=== PATIENT | female | born 1970 | race African-American/Black ===

== ENCOUNTER 2021-06-24 16:21 | Outpatient (REF) | payer MEDICAID, SELFPAY ==
[2021-06-24 16:57] LABS: MANUAL DIFF FLAG NO
[2021-06-24 16:58] LABS: Basophils Percent Auto 0.4 % (0-2); Eosinophils Absolute Auto 0.1 X10*3/uL (0.0-0.4); Eosinophils Percent Auto 0.9 % (0-4); Hematocrit 35.1 % (37-47); Hemoglobin 12.3 g/dl (12.0-16.0); Imm Gran Abs Auto 0.02 X10*3/uL (0.00-0.03); Imm Gran Pct Auto 0.3 % (0.0-0.4); Lymphocytes Percent Auto 39.6 % (20-40); Mean Corpuscular Hemoglobin 29.9 pg (27.0-33.0); Mean Corpuscular Volume 85.4 fL (80-98); Mean Platelet Volume 8.6 fL (9.4-12.3); Monocytes Absolute Auto 0.5 X10*3/uL (0.1-1.2); Monocytes Percent Auto 6.7 % (2-11); Neutrophils Absolute Auto 3.9 X10*3/uL (2.0-8.3); Neutrophils Percent Auto 52.1 % (45-73); Platelet Count 329 X10*3/uL (160-400); Red Blood Count 4.11 X10*6/uL (4.20-5.50); Red Cell Distribution Width 12.8 % (11.0-16.0); White Blood Count 7.5 X10*3/uL (4.8-10.8)
[2021-06-24 17:43] LABS: Alanine Aminotransferase 21 U/L (0-31); Albumin Level 4.2 g/dL (3.5-5.0); Alkaline Phosphatase 50 U/L (39-117); Anion Gap 13 (12-20); Aspartate Amino Transferase 21 U/L (5-31); Bilirubin Total 0.5 mg/dL (0.0-1.0); Blood Urea Nitrogen 20 mg/dL (9-16); C Reactive Protein 0.98 mg/dL (< or = 0.50); Calcium 9.3 mg/dL (8.4-10.2); Carbon Dioxide 25 mmol/L (22-29); Chloride 109 mmol/L (96-108); Cholesterol 233 mg/dL; Estimated Glomerular Filt Rate > 60; Glucose Random 93 mg/dL (60-115); Potassium 3.9 mmol/L (3.3-5.1); Sodium 143 mmol/L (135-145); Total Protein 6.9 g/dL (6.5-8.0)
[2021-06-24 17:59] LABS: Free T4 (Free Thyroxine) 0.86 ng/dL (0.71-1.85); Thyroid Stimulating Hormone 1.67 uIU/mL (0.32-4.0); Vitamin D 25-OH Total 26.9 ng/mL (>30)
[2021-06-24 18:08] LABS: Vitamin B12 302 pg/mL (200-900)
== END 2021-06-24 16:22 | disposition home or self-care (01) ==
LOC: HO.LAB 16:21
PROVIDERS: PCP Internal Medicine; Visit Provider Internal Medicine
DX: R63.5 Abnormal weight gain (principal); J45.909 Unspecified asthma, uncomplicated; R06.02 Shortness of breath; M79.10 Myalgia, unspecified site
CPT/HCPCS: 36415; 80053; 82306; 82465; 82607; 84439; 84443; 85025; 86140

== ENCOUNTER 2021-07-21 12:48 | Outpatient (REF) | payer MEDICAID, SELFPAY ==
[2021-07-24 14:41] LABS: TS Negative Control Passed; TS Panel A 0; TS Panel B 0; TS Positive Control Passed; TSpotTB Negative (SeeBelow)
== END 2021-07-21 12:49 | disposition home or self-care (01) ==
LOC: HO.LAB 12:48
PROVIDERS: PCP Internal Medicine; Visit Provider Internal Medicine
DX: Z02.1 Encounter for pre-employment examination (principal); Z11.1 Encounter for screening for respiratory tuberculosis
CPT/HCPCS: 36415; 86481

== ENCOUNTER 2021-10-20 14:49 | Outpatient (REF) | payer MEDICAID, SELFPAY ==
--- NOTE | ~2021-10-20 | XR_ITS ---
EXAMINATION: XR LUMBAR SPINE XR PELVIS CLINICAL INFORMATION: Right sacroiliac pain. COMPARISON: MRI lumbar spine 07/28/2014. XR pelvis 07/04/2014. TECHNIQUE: AP and lateral views of the lumbosacral spine are obtained. A lateral coned-down view (2 images) of the lumbosacral junction is obtained. AP and low AP views of the pelvis are obtained. FINDINGS: Lumbar Spine: There is no acute fracture or subluxation. There is mild disc space narrowing at L2-L3 and L5-S1 with mild endplate sclerosis at L5-S1. Pelvis: There is mild osteoarthritis of both sacroiliac joints. There are small marginal osteophytes inferiorly. There is subchondral sclerosis involving both sacroiliac joints, more prominent in the inferior joints. There are tiny marginal osteophytes involving both hip joints without significant joint space narrowing. XR/XR pelvis 1-2V IMPRESSION: LUMBAR SPINE: Mild degenerative disc disease at L2-L3 and L5-S1. PELVIS: Mild osteoarthritis of both sacroiliac joints. Minor osteoarthritis of both hips.
--- NOTE | ~2021-10-20 | XR_ITS ---
EXAMINATION: XR LUMBAR SPINE XR PELVIS CLINICAL INFORMATION: Right sacroiliac pain. COMPARISON: MRI lumbar spine 07/28/2014. XR pelvis 07/04/2014. TECHNIQUE: AP and lateral views of the lumbosacral spine are obtained. A lateral coned-down view (2 images) of the lumbosacral junction is obtained. AP and low AP views of the pelvis are obtained. FINDINGS: Lumbar Spine: There is no acute fracture or subluxation. There is mild disc space narrowing at L2-L3 and L5-S1 with mild endplate sclerosis at L5-S1. Pelvis: There is mild osteoarthritis of both sacroiliac joints. There are small marginal osteophytes inferiorly. There is subchondral sclerosis involving both sacroiliac joints, more prominent in the inferior joints. There are tiny marginal osteophytes involving both hip joints without significant joint space narrowing. XR/XR lumbar spine 2-3V IMPRESSION: LUMBAR SPINE: Mild degenerative disc disease at L2-L3 and L5-S1. PELVIS: Mild osteoarthritis of both sacroiliac joints. Minor osteoarthritis of both hips.
[2021-10-20 15:08] LABS: MANUAL DIFF FLAG NO
[2021-10-20 15:49] LABS: Basophils Percent Auto 0.4 % (0-2); Eosinophils Absolute Auto 0.2 X10*3/uL (0.0-0.4); Eosinophils Percent Auto 2.3 % (0-4); Hematocrit 40.5 % (37.0-47.0); Hemoglobin 13.6 g/dl (12.0-16.0); Imm Gran Abs Auto 0.05 X10*3/uL (0.00-0.03); Imm Gran Pct Auto 0.5 % (0.0-0.4); Lymphocytes Absolute Auto 3.9 X10*3/uL (1.2-4.9); Lymphocytes Percent Auto 38.1 % (20-40); Mean Corpuscular HGB Conc 33.6 g/dl (31.0-35.0); Mean Corpuscular Hemoglobin 28.5 pg (27.0-33.0); Mean Corpuscular Volume 84.9 fL (80.0-98.0); Mean Platelet Volume 9.1 fL (9.4-12.3); Monocytes Absolute Auto 0.6 X10*3/uL (0.1-1.2); Monocytes Percent Auto 6.2 % (2-11); Neutrophils Absolute Auto 5.3 x10*3/uL (2.0-8.3); Neutrophils Percent Auto 52.5 % (45-73); Platelet Count 274 X10*3/uL (160-400); Red Blood Count 4.77 X10*6/uL (4.20-5.50); Red Cell Distribution Width 12.7 % (11.0-16.0); White Blood Count 10.1 X10*3/uL (4.8-10.8)
[2021-10-20 16:06] LABS: Alanine Aminotransferase 21 U/L (0-31); Albumin Level 4.2 g/dL (3.5-5.0); Alkaline Phosphatase 48 U/L (39-117); Anion Gap 12 (12-20); Aspartate Amino Transferase 18 U/L (5-31); Bilirubin Total 0.5 mg/dL (0.0-1.0); Blood Urea Nitrogen 13 mg/dL (9-16); C Reactive Protein 1.14 mg/dL (< or = 0.50); Calcium 9.8 mg/dL (8.4-10.2); Carbon Dioxide 28 mmol/L (22-29); Chloride 106 mmol/L (96-108); Estimated Glomerular Filt Rate > 60; Glucose Random 76 mg/dL (60-115); Sodium 142 mmol/L (135-145); Total Protein 6.9 g/dL (6.5-8.0)
[2021-10-20 16:29] LABS: Free T4 (Free Thyroxine) 0.74 ng/dL (0.71-1.85); Thyroid Stimulating Hormone 2.23 uIU/mL (0.32-4.0)
== END 2021-10-20 14:50 | disposition home or self-care (01) ==
LOC: HO.LAB 14:49
PROVIDERS: Visit Provider Internal Medicine
DX: J45.909 Unspecified asthma, uncomplicated (principal); R63.5 Abnormal weight gain; M53.3 Sacrococcygeal disorders, not elsewhere classified
CPT/HCPCS: 36415; 72100; 72170; 80053; 84439; 84443; 85025; 86140

== ENCOUNTER 2021-12-13 15:00 | Outpatient (RCR) | payer MEDICAID, SELFPAY ==
--- NOTE | 2022-01-25 09:14 | MHC.PT.DC ---
[facility] [place] Office [place] Office [place] Office [address] Meaghan Hogan [address] [phone] F: [phone] F: [phone] F: [phone] F: [phone] Physical Therapy Discharge Report Diagnosis: DDD SI B joint pain Date of Surgery: n/a Date of Evaluation: 11/23/21 Date of Discharge: 01/25/22 Treatments to Date: 5 Cancellations to Date: 5 No Shows to Date: 1 Discharge Status: Visit Non-compliance Discharge Summary: Pt cancelled and no showed her 4 remaining appointments and has not reached out in over 30 days. Pt status unknown at this time. Electronically signed by: Paige Bullard, PT, DPT, ATC Please sign and return to therapist. Thank you for your referral.
== END 2022-01-25 09:14 | disposition home or self-care (01) ==
LOC: HO.PTCHIC 15:00
PROVIDERS: PCP Internal Medicine; Visit Provider Internal Medicine
DX: M51.36 Other intervertebral disc degeneration, lumbar region (principal)
CPT/HCPCS: 97110; 97140; 97161

== ENCOUNTER 2022-03-21 08:00 | Outpatient (RCR) | payer MEDICAID, SELFPAY | END 2022-04-14 13:18 | disposition home or self-care (01) | LOC: HO.PTCHIC 08:00 | PROVIDERS: PCP Internal Medicine; Visit Provider Internal Medicine | DX: M54.50 Low back pain, unspecified (principal); M25.561 Pain in right knee; M25.562 Pain in left knee | CPT/HCPCS: 97110; 97162 ==

== ENCOUNTER 2022-04-05 15:35 | Emergency (ER) | payer MEDICAID, SELFPAY ==
--- NOTE | ~2022-04-05 | XR_ITS ---
EXAMINATION: XR CHEST CLINICAL INFORMATION: Shortness of breath COMPARISON: None TECHNIQUE: Frontal view of the chest was obtained. FINDINGS: No significant abnormality is noted involving the heart, lungs, mediastinum, bony thorax or soft tissues. XR/XR chest 1V IMPRESSION: Unremarkable examination.
[2022-04-05 15:51] VITALS: BP 130/84; PULSE 90; RESP 22; TEMP 35.6; O2SAT 98; BMI 32.9
--- NOTE | 2022-04-05 15:57 | ED_ITS ---
HPI - Asthma General Chief Complaint: Asthma <ERICK Reyna Last Filed: 04/05/22 18:11> Stated Complaint: Diff Breathing Asthma <ERICK Reyna Last Filed: 04/05/22 18:11> Time Seen by Provider: 04/05/22 15:51 <ERICK Reyna Last Filed: 04/05/22 18:11> Source: patient <ERICK Reyna Last Filed: 04/05/22 18:11> Mode of arrival: ambulatory <ERICK Reyna Last Filed: 04/05/22 18:11> History of Present Illness HPI Narrative: 51-year-old female with past medical history of asthma presenting to the ED complaining of asthma exacerbation since last night. Admits to using albuterol at home without relief. Reports productive cough, wheeze and SOB. Denies chest pain, fever, chills, recent travel, pedal edema, calf pain, history of clots <ERICK Reyna Last Filed: 04/05/22 18:11> MD complaint: asthma attack , shortness of breath and wheezing <ERICK Reyna Last Filed: 04/05/22 18:11> Onset (ago): day(s) <ERICK Reyna Last Filed: 04/05/22 18:11> Related Data Home Medications: Previous Rx's Medication Instructions Recorded albuterol sulfate 2.5 mg/0.5 mL 5 mg INHALATION Q4H PRN #30 ea 04/05/22 solution for nebulization albuterol sulfate 90 mcg/actuation 2 puff INHALATION Q4-6H PRN #6.7 g 04/05/22 aerosol inhaler prednisone 20 mg tablet 40 mg PO DAILY 5 Days #10 tab 04/05/22 <ERICK Reyna Last Filed: 04/05/22 18:11> Allergies/Adverse Reactions: Allergies Allergy/AdvReac Type Severity Reaction Status Date / Time No Known Allergies Allergy Unverified 07/23/20 17:35 <ERICK Reyna Last Filed: 04/05/22 18:11> Review of Systems Review of Systems: Constitutional: No Fever, No Chills, No Fatigue, No Malaise ENT/Mouth: No Ear Pain, No Nasal Congestion, No sore throat, No Rhinorrhea, No Swallowing Difficulty Eyes: No Eye Pain, No Swelling, No Redness, No Vision Changes Cardiovascular: No Chest Pain, + SOB, No Dyspnea on Exertion, No Orthopnea, No Edema, No Palpitations Respiratory: + Cough, + Sputum, + Wheezing, No Smoke Exposure, + Dyspnea Gastrointestinal: No Nausea, No Vomiting, No Diarrhea, No Constipation, No Abdominal pain Genitourinary: No Dysuria, No Urgency, No Flank Pain Musculoskeletal: No joint pain, No Myalgias, No Joint Swelling Skin: No Skin Lesions, No rash Neuro: No Weakness, No Dizziness, No Headache <ERICK Reyna Last Filed: 04/05/22 18:11> Yes all other systems are reviewed and are negative <ERICK Reyna Last Filed: 04/05/22 18:11> [facility] Past Medical History Attestation statement: The following information was validated with the patient. <ERICK Reyna Last Filed: 04/05/22 18:11> Social History Social History: Social History Advance Directives: No Advance Directives Information Provided: No <ERICK Reyna Last Filed: 04/05/22 18:11> Physical Exam Vital Signs: Vital Signs: Last Vital Signs Temp 96.1 F L 04/05/22 15:51 Pulse 89 04/05/22 17:11 Resp 20 04/05/22 17:11 BP 130/84 04/05/22 15:51 Pulse Ox 98 04/05/22 15:51 Oxygen Flow Rate 2 04/05/22 15:51 BMI result Body Mass Index 32.9 <ERICK Reyna Last Filed: 04/05/22 18:11> Const: General: cooperative and anxious <ERICK Reyna Last Filed: 04/05/22 18:11> Orientation/consciousness: patient oriented x3 <ERICK Reyna Last Filed: 04/05/22 18:11> Limitations: no limitations <ERICK Reyna Last Filed: 04/05/22 18:11> HEENT: Head: Yes normal to inspection and Yes atraumatic <Symone Connell PA - Last Filed: 04/05/22 18:11> Ears: hearing grossly normal bilaterally <Symone Connell PA - Last Filed: 04/05/22 18:11> General nose exam: Normal external nose present <Symone Connell PA - Last Filed: 04/05/22 18:11> Face and sinus: Yes normal facial exam <Symone Connell PA - Last Filed: 04/05/22 18:11> Eyes: General: appearance normal, both eyes and all related structures <Symone Connell PA - Last Filed: 04/05/22 18:11> EOM: EOMs intact bilaterally <Symone Connell PA - Last Filed: 04/05/22 18:11> Neck: Neck: Yes normal visual inspection and Yes no meningeal signs <Symone Connell PA - Last Filed: 04/05/22 18:11> Resp: Effort & Inspection: Actively coughing Quality: productive and no respiratory distress <Symone Connell PA - Last Filed: 04/05/22 18:11> Auscultation: wheezes expiratory wheezes <Symone Connell PA - Last Filed: 04/05/22 18:11> Cardio: Rate: regular rate <Symone Connell PA - Last Filed: 04/05/22 18:11> Heart sounds: S1 normal heart sound present and S2 normal heart sound present <Symone Connell PA - Last Filed: 04/05/22 18:11> Skin: Rashes: no rashes <Symone Connell PA - Last Filed: 04/05/22 18:11> Wounds: no wounds <Symone Connell PA - Last Filed: 04/05/22 18:11> Neuro: General: patient oriented x3, tone normal and no meningeal signs <Symone Connell PA - Last Filed: 04/05/22 18:11> Gait exam (Neuro): Normal gait present <Symone Connell PA - Last Filed: 04/05/22 18:11> Extrem: General: Yes normal to inspection, Yes no pedal edema and Yes no calf tenderness <ERICK Reyna - Last Filed: 04/05/22 18:11> Course Course Course Narrative: -1643--on re-evaluation lungs without wheezing, good air movement. Will give additional DuoNeb, Tessalon Perles, and Hycodan. XR chest 1V IMPRESSION: Unremarkable examination. -patient reports sx improvement, and comfortable, in no respiratory distress. 19 and influenza negative. Results discussed with patient including worrisome signs and symptoms and strict return precautions. She is to follow-up with her PCP <ERICK Reyna - Last Filed: 04/05/22 18:11> MDM - Asthma MDM Narrative Medical decision making narrative: 51-year-old female with past medical history of asthma presenting to the ED complaining of asthma exacerbation since last night. On exam anxious, tachypneic likely from anxiety, actively coughing during exam, x-ray [place] wheeze noted. Good air movement. No pedal edema/tenderness. Concern for asthma exacerbation. Rule out pneumonia/viral illness including COVID-19 chest influenza. Unlikely ACS/PE Plan: COVID-19/influenza testing, CXR, DuoNeb, p.o. prednisone <ERICK Reyna - Last Filed: 04/05/22 18:11> Differential Diagnosis Differential diagnosis: Likely Acute exacerbation, Acute asthmatic bronchitis and Pneumonia <ERICK Reyna - Last Filed: 04/05/22 18:11> Medical Records Attestation: I reviewed the patient's medical records. <ERICK Reyna - Last Filed: 04/05/22 18:11> Lab Data Attestation: I reviewed the patient's lab results. <ERICK Reyna - Last Filed: 04/05/22 18:11> Labs: Lab Results 04/05/22 04/05/22 Range/Units 16:18 16:18 COVID-19 (ELY) Negative (Negative) COVID-19 Clin Com See Note Influenza Type A (LEONARD) Negative (Negative) Influenza Type B (LEONARD) Negative (Negative) Influenza A & B Note See Note <ERICK Reyna Last Filed: 04/05/22 18:11> Discharge Plan Discharge Clinical Impression: Asthma with acute exacerbation <ERICK Reyna Last Filed: 04/05/22 18:11> Patient Disposition: Home, Self-Care <ERICK Reyna - Last Filed: 04/05/22 18:11> Instructions: Asthma (DC) <ERICK Reyna - Last Filed: 04/05/22 18:11> Additional Instructions: You are having an asthma exacerbation. Her chest x-ray was unremarkable. You tested negative for COVID-19 and the flu Prednisone as a steroid please take as prescribed Continue using your albuterol inhalers and nebulizer machine at home. Please follow-up with her doctor. If symptoms persist or worsen please return to the emergency department or call 911 <ERICK Reyna - Last Filed: 04/05/22 18:11> Prescriptions: New prednisone 20 mg tablet 40 mg PO DAILY 5 Days Qty: 10 0RF albuterol sulfate 90 mcg/actuation HFA aerosol inhaler 2 puff inhalation Q4-6H PRN (Reason: shortness of breath or wheezing) Qty: 6.7 0RF albuterol sulfate 2.5 mg/0.5 mL solution for nebulization 5 mg inhalation Q4H PRN (Reason: shortness of breath or wheezing) Qty: 30 0RF <ERICK Reyna - Last Filed: 04/05/22 18:11> Referrals: Frantz Gutierrez MD [Primary Care Provider] - 2 days <ERICK Reyna - Last Filed: 04/05/22 18:11> Stand Alone Forms: Work/School Release <ERICK Reyna - Last Filed: 04/05/22 18:11> Interventions: ED Discharge Assessment Last Done: 04/05/22 18:21 <ERICK Reyna - Last Filed: 04/05/22 18:11> Discharge Date/Time: 04/05/22 18:22 <ERICK Reyna - Last Filed: 04/05/22 18:11>
[2022-04-05 16:17] VITALS: PULSE 88; RESP 24; O2SAT 97
[2022-04-05] MEDS: Albuterol/Iprat 2.5/0.5MG 3 ML AMPUL.NEB INHALE ×2 (16:17→17:11)
[2022-04-05] MEDS: predniSONE 20 MG TABLET 40 MG PO (16:21)
[2022-04-05] MEDS: hydrOXYzine HCL 25 MG TABLET PO (16:21)
[2022-04-05 16:45] LABS: COVID-19 Test Negative (Negative); IDNOW Serial# 16C4AD1C; IDNOW Serial# 9DB6401D; Influenza A Negative (Negative); Influenza B2 Negative (Negative)
[2022-04-05] MEDS: Benzonatate 100 MG CAPSULE 200 MG PO (17:08)
[2022-04-05] MEDS: HYDROcodone/Homat 5/1.5/5 ML 5 ML SYRUP PO (17:09)
[2022-04-05 17:11] VITALS: PULSE 89; RESP 20; O2SAT 97
== END 2022-04-05 18:22 | disposition home or self-care (01) ==
PROVIDERS: Physician Assistant; Emergency Provider Emergency Medicine; PCP Internal Medicine
DX: J45.901 Unspecified asthma with (acute) exacerbation (principal); Z20.822 Contact with and (suspected) exposure to COVID-19
CPT/HCPCS: 71045; 87502; 87635; 94640; 99282; 99284

== ENCOUNTER 2022-06-23 16:28 | Outpatient (REF) | payer MEDICAID, SELFPAY ==
[2022-06-24 04:52] LABS: ~Hepatitis B Surface Antibody REACTIVE (Nonreactive)
[2022-06-27 23:13] LABS: Mumps Virus IgG Antibody >300.00 AU/mL; Rubella IgG Antibody 6.42 Index; Rubeola IgG (Measles) >300.00 AU/mL
== END 2022-06-23 16:29 | disposition home or self-care (01) ==
LOC: HO.LAB 16:28
PROVIDERS: PCP Internal Medicine; Visit Provider Internal Medicine
DX: Z02.0 Encounter for examination for admission to educational institution (principal)
CPT/HCPCS: 36415; 86706; 86735; 86762; 86765; 86787

== ENCOUNTER 2022-07-05 11:59 | Outpatient (REF) | payer MEDICAID, SELFPAY ==
[2022-07-09 00:12] LABS: TS Negative Control Passed; TS Panel A 0; TS Panel B 1; TS Positive Control Passed; TSpotTB Negative (Negative)
== END 2022-07-05 12:00 | disposition home or self-care (01) ==
LOC: HO.LAB 11:59
PROVIDERS: PCP Internal Medicine; Visit Provider Internal Medicine
DX: Z02.0 Encounter for examination for admission to educational institution (principal); Z11.1 Encounter for screening for respiratory tuberculosis
CPT/HCPCS: 36415; 86481

== ENCOUNTER 2022-12-01 10:42 | Outpatient (REF) | payer MEDICAID, SELFPAY ==
[2022-12-01 16:01] LABS: Influenza A PCR NEGATIVE (Negative); Influenza B PCR NEGATIVE (Negative); Resp Syncy Virus RNA Qual PCR NEGATIVE (Negative); SARS COV2 PCR INHOUSE NEGATIVE (Negative)
== END 2022-12-01 10:43 | disposition home or self-care (01) ==
LOC: HO.10HDLNP 10:42
PROVIDERS: Visit Provider Internal Medicine
DX: Z20.822 Contact with and (suspected) exposure to COVID-19 (principal)
CPT/HCPCS: 0241U